=== PATIENT | female | born 1955 | race Two or more races ===

== ENCOUNTER 2016-12-16 10:50 | Observation (INO) | payer OTHER ==
[~2016-12-16] VITALS: Ht 165.1 cm; Wt 90.0 kg
[2016-12-16] MEDS ORDERED: METFORMIN HCL500 M4 PO (11:23)
[2016-12-16 11:39] LABS: EOSINOPHIL (%) 2.3 % (0-5); EOSINOPHIL COUNT 0.2 K/uL (0-0.3); HEMATOCRIT 42.2 % (36.0-46.0); IMMATURE GRANULOCYTE (%) 0.6 % (0.0-0.7); IMMATURE GRANULOCYTE COUNT 0.1 K/uL; INSTRUMENT ABS NEUTROPHIL CT 6.2 K/uL; LYMPHOCYTE COUNT 1.2 K/uL (1.0-2.8); MCH 24.3 PG (29.0-34.0); MCHC 30.3 G/DL (30.0-36.0); MCV 80.1 FL (83-99); MEAN PLAT.VOLUME 8.6 uM^3 (9.5-12.4); MONOCYTE (%) 6.7 % (3-12); MONOCYTE COUNT 0.6 K/uL (0-0.8); NEUTROPHIL (%) 75.8 % (45-76); NEUTROPHIL COUNT 6.2 K/uL (1.8-6.4); PLATELET COUNT 271 K/uL (156-360); RBC DIS.WIDTH-CV 14.1 % (11.8-14.6); RED BLOOD COUNT 5.27 M/uL (3.80-5.20); WHITE BLOOD COUNT 8.2 K/uL (4.1-10.2)
[2016-12-16 11:46] LABS: CHLORIDE 104 mEq/L (99-109); POTASSIUM 4.8 mEq/L (3.7-5.4); SODIUM 138 mEq/L (136-147)
[2016-12-16 11:47] LABS: PROTHROMBIN TIME 10.4 (9.2-11.2); PTT 23.2 (25-32)
[2016-12-16 11:48] LABS: GLUCOSE 207 mg/dL (70-99)
[2016-12-16 11:50] LABS: ANION GAP 9 MEQ/L (2-14); TOTAL BILIRUBIN 0.5 mg/dL (0.0-1.0)
[2016-12-16 11:52] LABS: ALKALINE PHOSPHATASE 84 IU/L (3-129)
[2016-12-16 11:53] LABS: UREA NITROGEN (BUN) 14 mg/dL (9-23)
[2016-12-16 11:55] LABS: LIPASE 20 U/L (1.0-51.0)
[2016-12-16 11:56] LABS: GFR ESTIMATE (CALCULATED) 53 mL/min/
[2016-12-16 11:57] LABS: POINT-OF-CARE METER ID UU14100415
[2016-12-16 11:59] LABS: TROP-I INTERPRETATION NEGATIVE; TROPONIN-I < 0.01 ng/mL (0.0-0.30)
[2016-12-16 12:52] LABS: ADD MIUA? NO; BILIRUBIN NEGATIVE; BLOOD NEGATIVE; COLOR STRAW ((YELLOW)); GLUCOSE (STRIP) 150; KETONES NEGATIVE; LEUKOCYTES NEGATIVE; NITRITE NEGATIVE; PROTEIN (STRIP) NEGATIVE; SPECIFIC GRAVITY 1.024 (1.000-1.030); UCUL ADDED? NO; UROBILINOGEN 0.2 MG/DL (0.2-1.0)
[2016-12-16] MEDS ORDERED: METFORMIN HCL500 MG PO (14:49)
[2016-12-16] MEDS ORDERED: LISINOPRIL20 MG PO (14:50)
[2016-12-16] MEDS ORDERED: ASPIR-LOW81 MG PO (14:50)
[2016-12-16] MEDS ORDERED: ATORVASTATIN CA80 MG PO (14:50)
[2016-12-16] MEDS ORDERED: VITAMIN D31000 UNI2 PO (14:51)
[2016-12-16 16:40] LABS: POINT-OF-CARE METER ID UU14100415
[2016-12-16 17:30] VITALS: BP 113/70
[2016-12-16 19:30] VITALS: BP 109/64
[2016-12-16 21:07] LABS: TROP-I INTERPRETATION NEGATIVE; TROPONIN-I < 0.01 ng/mL (0.0-0.30)
[2016-12-16 21:48] LABS: POINT-OF-CARE METER ID UU14162513
[2016-12-17 00:10] VITALS: BP 109/69
[2016-12-17 04:26] VITALS: BP 123/79
[2016-12-17 06:22] LABS: TROP-I INTERPRETATION NEGATIVE; TROPONIN-I < 0.01 ng/mL (0.0-0.30)
[2016-12-17 08:43] VITALS: BP 118/77
== END 2016-12-17 12:41 | disposition home or self-care (01) ==
LOC: EME 10:50 → 5WEST 14:17 → EDOF 14:17 → 5WEST 17:22
PROVIDERS: Emergency Medicine; Hospitalist; Internal Medicine
DX: R55 Syncope and collapse (principal); R07.89 Other chest pain; R11.2 Nausea with vomiting, unspecified; I10 Essential (primary) hypertension; E78.5 Hyperlipidemia, unspecified; E11.9 Type 2 diabetes mellitus without complications; H91.90 Unspecified hearing loss, unspecified ear
CPT/HCPCS: 70450; 71010; 71275; 74177; 80053; 81003; 82948; 83690; 84484; 85025; 85610; 85730; 93005; 99281; 99284; G0378; J1650; J1815; J2405; J7030; S0028